=== PATIENT | female | born 1985 | race Caucasian/White ===

== ENCOUNTER → 2025-04-01 | Day surgery (SDC) | payer MEDICAID ==
[~2025-04-01] VITALS: Ht 154.9 cm; Wt 86.2 kg
[~2025-04-01] MED LIST: ACETAMINOPHEN 1,000MG/100ML PREMIX IV PRN; BUPIVACAINE HCL/PF 0.5% (5MG/ML) 10ML ONE; FAMOTIDINE 20MG/2ML VIAL IV ONE; FAMOTIDINE 20MG/2ML VIAL IV PRN; FENTANYL CITRATE/PF 50MCG/ML 2ML VIAL ONE; HYDRALAZINE 20MG/ML VIAL IV PRN; HYDROMORPHONE HCL/PF 2MG/ML INJ ONE; LABETALOL 5MG/ML 4ML INJ IV PRN; LACTATED RINGERS 1,000 ML IV SCH; MEPERIDINE HCL/PF 25MG/ML CPJ IV PRN; MIDAZOLAM HCL 2 MG/2 ML VIAL ONE; MULT-1278 PO; ONDANSETRON HCL 4MG/2ML INJ IV PRN; PROPOFOL 200MG/20ML VIAL IV ONE; ROCURONIUM BROMIDE 10MG/ML VIAL 5ML IV ONE; SKIN ADHESIVE 0.7 GM EA TOP ONE
[2025-04-01 06:26] LABS: UCG KIT LOT# 958452
[2025-04-01 06:27] LABS: UCG KIT EXPIRATION DATE 01/03/2027; UCG SCREEN NEGATIVE
[2025-04-01] MEDS: ACETAMINOPHEN 1000MG/100ML 100 ML IV PRN (09:31)
[2025-04-01] MEDS: HYDROMORPHONE HCL/PF 1MG/ML INJ IV PRN (09:37)
[2025-04-01 11:11] VITALS: BP 117/68; PULSE 72; RESP 20
[2025-04-01] MEDS: ACETAMINOPHEN WITH CODEINE 300/30MG TABLET PO NR (11:11)
== END | disposition home or self-care (01) ==
LOC: OR 05:38
PROVIDERS: ATTEND Surgery
DX: K42.9 Umbilical hernia without obstruction or gangrene (principal); Z79.899 Other long term (current) drug therapy; Z98.890 Other specified postprocedural states
CPT/HCPCS: 49593; 81025; J3010; J0665; J1308; J2250; J2704; J3490; J1171; C1781; J0131